=== PATIENT | female | born 1965 | race Caucasian/White ===

== ENCOUNTER 2020-09-10 05:13 | Observation (INO) ==
--- NOTE | 2020-08-19 15:36 | PAT Medication Instructions ---
Medication Instructions Date of Service August 19, 2020 Home Medications Medication Instructions Recorded meloxicam 15 mg tablet 15 mg PO DAILY PRN #30 tab 01/08/20 Wheeled Walker #1 ea 08/14/20 meloxicam 15 mg tablet 15 mg PO DAILY PRN escitalopram oxalate 10 mg tablet 10 mg PO QAM levothyroxine 88 mcg tablet 88 mcg PO QAM ergocalciferol (vitamin D2) [Vitamin D2] 1,250 mcg PO WK Continue as directed ergocalciferol (vitamin D2) [Vitamin D2] 1,250 mcg PO WK (just do not take morning of surgery) ASK your surgeon for instructions meloxicam 15 mg tablet 15 mg PO DAILY PRN Take morning of surgery With a small sip of water, OTHERWISE NOTHING TO EAT OR DRINK AFTER MIDNIGHT: escitalopram oxalate 10 mg tablet 10 mg PO QAM levothyroxine 88 mcg tablet 88 mcg PO QAM Other Notes If you have any questions please call us at [phone] or [phone] or [phone] or [phone]
--- NOTE | 2020-08-21 08:42 | Anesthesiology Consultation ---
Date of Service August 21, 2020 Assessment & Plan (1) Encounter for pre-operative examination: Per assessment on 08/21: Travel screen negative. No known COVID-19 positive contacts or current COVID-19 related symptoms. Surgeon arranging preop COVID testing (scheduled 09/04). Awaiting results. Chart Review Chart Review: Acceptable Risk for Surgery and Patient seen in Pre Admission Testing Teaching & Discussion Pre-Anesthesia Teaching/Discussion Notes: Instructed NPO after midnight before surgery,except medications with 15 cc of water. Medication instructions provided according to the PAT guidelines. History Surgery Operation Date: 09/10/20 12:45 Proposed Procedures p Right Unicompartmental Versus - Angel Carpio MD s Total Knee Arthroplasty - Angel Carpio MD Height/Weight Height: 5 ft 6 in Weight: 120.1 kg Allergies Allergy/AdvReac Type Severity Reaction Status Date / Time No Known Allergies Allergy Verified 08/19/20 10:15 Medications Home Medications Medication Instructions Recorded Confirmed Last Taken meloxicam 15 mg tablet 15 mg PO DAILY PRN #30 tab 01/08/20 08/19/20 Unknown escitalopram oxalate 10 mg tablet 10 mg PO QAM 04/16/20 08/19/20 Unknown levothyroxine 88 mcg tablet 88 mcg PO QAM 04/16/20 08/19/20 Unknown Wheeled Walker #1 ea 08/14/20 08/14/20 Unknown ergocalciferol (vitamin D2) 1,250 mcg PO WK 08/19/20 08/19/20 Unknown [Vitamin D2] Past Medical History Medical History Depression Hypothyroidism Morbid obesity Osteoarthritis Sleep apnea CPAP Exercise / Class Metabolic Activity II 4-5 Yardwork/Stairs/Walk up hill Past Family History Family History Mother Family history of diabetes mellitus Family hx of colon cancer Brother Family history of esophageal cancer Past Surgical History Surgical History History of bilateral tubal ligation History of colonoscopy History of esophagogastroduodenoscopy (EGD) History of tooth extraction Past Anesthesia History No Hx of Anesthesia Complications and No Family Hx of Anesthesia Complications History of PONV No Hx of PONV and Hx of Motion Sickness Social History Smoking Status: Never smoker Do You Dip or Chew Tobacco: No Hx Alcohol Use: No Hx Substance Use: No substance use type: does not use Review of Systems Patient denies chest pain, shortness of breath, dyspnea on exertion, fever, chills, cough, wheezing, palpitations. Physical Exam Vital Signs VITALS BP 134/84 P 59 TEMP 98.2 SP02 97%RA RESP 16 PHYSICAL Full neck and c-spine range of motion. Full TMJ range of motion. TMD 4 finger breaths Mallampati Score 2 Dentition: missing molars Lungs: clear throughout to auscultation Cardiac: regular rate and rhythm, no murmurs noted Spine: normal Carotid arteries: negative bruit Extremities: no edema Short neck Testing Laboratory Results 08/21/20 09:06 08/21/20 09:06 PT 10.3 Seconds (9.0-12.0) 08/21/20 09:06 INR 1.0 (0.9-1.1) 08/21/20 09:06 APTT 24.6 Seconds (21.0-31.0) 08/21/20 09:06 Blood Type A Positive 08/21/20 09:06 Antibody Screen NEGATIVE 08/21/20 09:06 Electrocardiogram Date: 08/21/20 SR with short NJ at 63bpm. Nondiagnostic inferior Q waves. Otherwise normal ECG. Patient reports good functional status without cardiopulmonary complaints/limitations. Report will be forwarded to PCP for continuity of care. Chest X-Ray Date: 08/21/20 Findings: + NAD
--- NOTE | 2020-08-21 10:25 | XRay Report ---
XR chest Pre-admission PA/Lat HISTORY: Preop. COMPARISON: None. FINDINGS: The lungs are clear. Cardiac silhouette is normal in size. No pleural effusions. No pneumot horax. IMPRESSION: No acute process. ACT 112: Negative or not required by law. Electronically signed by: Manav Mancuso M.D. 08/21/2020 10:24 AM
[2020-08-21 10:28] LABS: Basophils # (auto) 0.03 K/uL (0-0.2); Basophils % (auto) 0.5 %; Eosinophils # (auto) 0.61 K/uL (0-0.5); Eosinophils % (auto) 9.4 %; Hematocrit (blood only) 43.4 % (37-47); Hemoglobin 14.5 g/dL (12.0-16.0); Immature Granulocytes # (auto) 0.01 K/uL (0.00-0.02); Immature Granulocytes % (auto) 0.2 %; Lymphocytes # (auto) 2.27 K/uL (1.2-3.4); Mean Corpuscular Hemoglobin 30.9 pg (25-34); Mean Corpuscular Hgb Conc 33.4 g/dL (32-36); Mean Corpuscular Volume 92.3 fL (80-100); Mean Platelet Volume 12.1 fL (7.4-10.4); Monocytes # (auto) 0.83 K/uL (0.11-0.59); Monocytes % (auto) 12.8 %; Neutrophils # (auto) 2.74 K/uL (1.4-6.5); Neutrophils % (auto) 42.1 %; Platelet Count 202 K/uL (130-400); RDW Coefficient of Variation 12.8 % (11.5-14.5); RDW Standard Deviation 42.9 fL (36.4-46.3); White Blood Count 6.49 K/uL (4.8-10.8)
[2020-08-21 10:35] LABS: BUN Creatinine Ratio 19.4 (10-20); Calcium 9.2 mg/dl (8.5-10.1); Creatinine Clr Calc Pharmacy 80.3 ml/min; Est GFR (African American) 70.7; Potassium 4.8 mmol/L (3.5-5.1)
[2020-08-21 10:39] LABS: Partial Thromboplastin Ratio 0.9; Partial Thromboplastin Time 24.6 Seconds (21.0-31.0); Prothrombin Time 10.3 Seconds (9.0-12.0)
--- NOTE | 2020-08-21 11:19 | Electrocardiogram Report ---
Test Reason : Blood Pressure : / mmHG Vent. Rate : 063 BPM Atrial Rate : 063 BPM P-R Int : 110 ms QRS Dur : 092 ms QT Int : 442 ms P-R-T Axes : 014 073 014 degrees QTc Int : 452 ms Sinus rhythm with short MI Nondiagnostic inferior Q waves Otherwise normal ECG No previous ECGs available Confirmed by Heath Austin ([id number]) on 08/21/2020 11:19:00 AM Referred By: Angel Carpio Confirmed By:Heath Austin
[2020-09-10] MEDS ORDERED: METOCLOPRAMIDE HCL 10 MG TABLET PO SCH (06:00)
[2020-09-10] MEDS ORDERED: ACETAMINOPHEN 500 MG TAB PO SCH (06:00)
[2020-09-10] MEDS ORDERED: LR 60ML/HR IV SCH (06:00)
[2020-09-10] MEDS ORDERED: FAMOTIDINE 20 MG TAB PO SCH (06:00)
[2020-09-10] MEDS ORDERED: TRANEXAMIC ACID 1,000 MG **IV Intra-op IV SCH (06:00)
[2020-09-10] MEDS ORDERED: BUPIVACAINE LIPOSOME/PF 266 MG, BUPIVACAINE/EPINEPHRINE 50 ML, SODIUM CHLORIDE 0.9% 30 ... INFIL SCH (06:00)
[2020-09-10] MEDS ORDERED: LR 500ML BOLUS, THEN 15ML/HR IV SCH (06:00)
[2020-09-10] MEDS ORDERED: GABAPENTIN 300 MG CAP PO SCH (06:00)
[2020-09-10] MEDS ORDERED: BUPIVACAINE 0.25% 30 ML VIAL ONE ×2 (06:23→07:02)
[2020-09-10] MEDS ORDERED: BUPIVACAINE 0.5 % 5 MG/1 ML PF 10ML VIAL ONE (06:23)
[2020-09-10] MEDS ORDERED: PROPOFOL IV EMULSION 10 MG/ML 20 ML VIAL IV ONE ×2 (06:51→08:17)
[2020-09-10] MEDS ORDERED: ePHEDrine sulfate 50 MG/ML SYR ONE (06:51)
[2020-09-10] MEDS ORDERED: MIDAZOLAM HCL 1 MG/ML 2ML VIAL ONE (06:51)
[2020-09-10] MEDS ORDERED: LIDOCAINE HCL 2% 2 ML VIAL/AMP(20MG/ML) INFIL ONE (06:51)
[2020-09-10] MEDS ORDERED: fentaNYL citrate 100 MCG/2 ML VIAL ONE (06:51)
--- NOTE | 2020-09-10 06:53 | History & Physical Bridge Note ---
Date of Service September 10, 2020 History & Physical Bridge Note I have examined the patient, reviewed the History & Physical and in the interval since the performance of the History & Physical I have noted the following changes of clinical significance: no changes noted
[2020-09-10] MEDS ORDERED: ePHEDrine sulfate 50 MG/ML AMP IV PRN (06:55)
[2020-09-10] MEDS ORDERED: ONDANSETRON INJ 2 MG/ML 2 ML VIAL IV PRN ×2 (06:55→10:26)
[2020-09-10] MEDS ORDERED: fentaNYL citrate 100 MCG/2 ML VIAL IV PRN (06:55)
[2020-09-10] MEDS ORDERED: ATROPINE SULFATE 0.1 MG/ML 10ML SYR IV PRN (06:55)
[2020-09-10] MEDS ORDERED: SODIUM CHLORIDE 0.9% PF 50 ML VIAL ONE (07:01)
[2020-09-10] MEDS ORDERED: BACITRACIN INJ 50,000 UNIT VIAL ONE (07:01)
[2020-09-10] MEDS ORDERED: BUPIVACAINE LIPOSOME 1.3% 266 MG/20 ML VIAL ONE (07:01)
[2020-09-10] MEDS ORDERED: EPINEPHrine INJ 1 MG/ML AMP ONE (07:02)
--- NOTE | 2020-09-10 09:01 | Post Operative Brief Note ---
PG Immediate Post Op with CF Date of Surgery September 10, 2020 Pre & Post Diagnosis Operation Date: 09/10/20 07:15 Pre-Op Diagnosis: Right Knee Degenerative Joint Disease Post-Op Diagnosis: Right Knee Degenerative Joint Disease I identified the patient and participated in the time-out.: Yes Procedure Operation Date: 09/10/20 07:15 Actual Procedures p Right Unicompartmental Total Knee Arthroplasty, Cemented(Right) - Angel Carpio MD Surgeon Angel Carpio MD Stunner Animal CRISTOPHER Vega Estimated Blood Loss 25 Findings Consistent with Post-Op Diagnosis Fluids 1800 cc Specimens Specimen Description: Permanent Specimen A: Right knee bone and tissue Drains Edmond Catheter Anesthesia Type Spinal MAC Complications none Disposition Accompanied Patient To Recovery: No Disposition: Recovery Room
--- NOTE | 2020-09-10 09:46 | XRay Report ---
XR knee RT 1 or 2V routine CLINICAL HISTORY: Surgical Post Op COMPARISON: MRI study dated 05/27/2020 DISCUSSION: There are postsurgical changes of a medial joint compartment arthroplasty. There is gas p resent within the soft tissues consistent with recent surgery. There are overlying skin ze. IMPRESSION: Postsurgical changes of a medial joint compartment arthroplasty. ACT 112: Negative or not required by law. Electronically signed by: Mateusz Moreno M.D. 09/10/2020 9:44 AM
[2020-09-10] MEDS ORDERED: bisacodyL 10 MG SUPP PR PRN (10:26)
[2020-09-10] MEDS ORDERED: HYDROmorphone INJ 0.5 MG/0.5 ML SYR IV PRN (10:26)
[2020-09-10] MEDS ORDERED: NALOXONE HCL 0.4 MG/1 ML VIAL/CARP IV PRN (10:26)
[2020-09-10] MEDS ORDERED: diphenhydrAMINE Capsule 25 MG CAP PO PRN (10:26)
[2020-09-10] MEDS ORDERED: METOCLOPRAMIDE HCL INJ 5 MG/ML 2 ML VIAL IV PRN (10:26)
[2020-09-10] MEDS ORDERED: MAGNESIUM HYDROXIDE SUSP 30 ML UDC PO PRN (10:26)
[2020-09-10] MEDS ORDERED: INFLUENZA ADMINISTRATION CHARGE ONE (10:41)
[2020-09-10] MEDS ORDERED: INFLUENZA VIRUS QUAD VACCINE 0.5 ML SYR IM ONE (10:41)
[2020-09-10] MEDS: KETOROLAC 30 MG/ML VIAL IV SCH ×3 (11:24→23:52)
[2020-09-10] MEDS: traMADol HCL 50 MG TABLET PO PRN ×2 (11:25→21:10)
[2020-09-10] MEDS: SODIUM CHLORIDE 0.9% 1000ML 1,000 ML IV SCH ×2 (11:25→18:35)
[2020-09-10] MEDS: ACETAMINOPHEN 500 MG TAB PO SCH ×2 (13:22→21:14)
[2020-09-10] MEDS: ceFAZolin 2000MG 2,000 MG/15 ML SYR IV SCH ×2 (13:23→21:14)
--- NOTE | 2020-09-10 13:44 | Operative Report ---
Post Operative Report Pre & Post Diagnosis Operation Date: 09/10/20 07:15 Pre-Op Diagnosis: Right Knee Degenerative Joint Disease Post-Op Diagnosis: Right Knee Degenerative Joint Disease I identified the patient and participated in the time-out.: Yes Procedure Operation Date: 09/10/20 07:15 Actual Procedures p Right Unicompartmental Total Knee Arthroplasty, Cemented(Right) - Angel Carpio MD Surgeon Angel Carpio MD Hand I Thermal Cutter CRISTOPHER Vega Estimated Blood Loss 25 Findings Consistent with Post-Op Diagnosis Operative findings revealed advanced right knee medial compartment DJD. She had grade 4 changes the medial femoral condyle medial tibial plateau. The lateral compartment and patellofemoral compartment were fairly well spared with minimal degenerative change. Moderate-sized joint effusion. Fluids 1800 cc. Specimens Right knee sent for pathology. Drains None. Anesthesia Type Spinal MAC Complications none Disposition Disposition: Recovery Room Indications Patient is a 55-year-old female is had a several year history of increasing right knee pain discomfort which is localized the medial side of her knee. She been through extensive conservative treatment which became less successful over time. X-rays show progressive medial compartment arthritis. She had an MRI done which showed fairly large full-thickness cartilage lesion medial femoral condyle and of bone edema of the medial femoral condyle medial tibial plateau. The rest of her knee looked pretty well-preserved. She elected proceed with right partial knee replacement. Description of Procedure Operative implants consisted of: 1. Biomet Stanly medium femoral component. 2. Biomet Stanly right medial size D tibial tray. 3. 3 mm mobile-bearing insert. Patient was taken to the operating identified placed on the operating table supine position protectors were properly padded. IV antibiotics arrived by anesthesia team. A spinal anesthetic and abductor canal block had provided holding area. Edmond catheter was placed in sterile fashion. Right factor was then placed in the right lower extremity was then prepped and draped in usual sterile fashion. The right leg was elevated exsanguinated with use of an Esmarch and turns placed at 300 mmHg. An anterior approach to the right knee was then performed through a longitudinal incision beginning at the superior pole of the patella and extending just medial to the tibial tubercle. Sharp dissection was got through subcutaneous this down the extensor mechanism. A medial parapatellar arthrotomy incision was made. Some slight subperiosteal dissection was carried out medially taking great care to protect the MCL. I did resect the fat pad from beneath but the patella tendon. I then examined the knee. The lateral patellofemoral compartments were fairly well-preserved. She had full-thickness cartilage lesion the medial femoral condyle and a large knee joint effusion. The ACL was intact. We elected proceed with partial knee replacement. The osteophyte in the intercondylar notch area was resected. The femur was sized to a size medium. The medium spoon was placed. The external tibial alignment jig was then placed in the interface the tibia and attached to the spoon and secured to the proximal tibia. The proximal tibial cut was made. The tibia was sized to a size D. Attention drawn the femur. The distal femur was then with a sharp drill. The intramedullary guide was placed. The medium template was then placed and the holes were drilled for the medium femoral component. The posterior cutting guide was placed and the posterior cut was made. The 0 spigot was placed in the distal femur was milled. I then remove the medial meniscus. I then trialed the knee and the 4 feeler gauge fit appropriately and flexion and the one in extension. We then used the 3 spigot milled the distal femur. We then trialed again and the 4 fit both flexion extension. Was a little bit tight but felt to be appropriate. We elect to place these implants. All trial implants were removed. Cement drill was used to create holes in the distal femur for cement interdigitation. The femoral preparation guide was placed and the posterior osteophyte was removed along with the milling of the anterior femur for the femoral trial. The tibial tray was pinned in place and the toothbrush blade saw was used to create the defect for the keel. We then trialed the knee one more time in the forefoot insert fit appropriately. Was a bit tight but we I believe it was fit. We elect to place these implants. All trial implants were removed. The wound was irrigated cups ounce of pulsatile lavage solution. A single batch of [place] G cement was mixed. A right medial size D tibial tray was then placed and cemented into position followed by a medium femoral component. I then placed the 4 spoon and the knee was brought out into 30 degrees short full extension total cement hardened. Once the cement hardened we did a cement check. I then trialed the knee and the 4 insert just seemed a little bit too tight. There were [address] a 3 insert. The 3 insert was placed. Attention drawn toward closing. The wounds irrigated scope soft pulsatile lavage solution. I did inject locally with 100 cc of combination of 20 cc of Exparel, 30 cc normal saline, 50 cc of quarter percent Marcaine with epinephrine. Patient did receive 1 g tranexamic acid per the tourniquet was then let down for final tourniquet time 63 minutes. Hemostasis assured use electrocautery. The extensor mechanism closed with #1 Vicryl suture in a [id number] fashion. Extensor mechanism checked found to be intact the subcutaneous tissue then closed with 2 Dexon suture in a buried interrupted fashion skin was closed skin ze. Leg was then cleaned dried and a sterile dressing was Xeroform, 4 x 4's, sterile cast padding, Robert bandage were applied. Patient then transferred to the recovery room in stable condition. Patient tolerated the procedure well and there were no complications. Salas Vega, my physician insurance legal assistant, was present for the entire procedure. His assistance was essential and required for appropriate patient positioning, prepping and draping, surgical exposure, performing the technical details of the operation, placement the implants, closure of the wound, and placement of the sterile bandage. I attest to the content of the Intraoperative Record and any orders documented therein. Any exceptions are noted below.
--- NOTE | 2020-09-10 14:32 | Anesthesiology Progress Note ---
Date of Service September 10, 2020 Anesthesia Post Procedure Vital Signs Vital Signs: Temp Pulse Pulse Pulse Resp BP BP 09/10/20 12:56 36.7 C 59 L 16 159/99 H 09/10/20 12:23 60 16 133/81 09/10/20 11:21 55 L 16 129/83 09/10/20 10:52 55 L 16 130/81 09/10/20 10:26 36.4 C L 58 L 16 143/80 H 09/10/20 09:45 61 18 144/80 H 09/10/20 09:35 36.6 C 67 18 144/79 H 09/10/20 09:25 66 17 141/72 H 09/10/20 09:15 76 19 139/76 09/10/20 09:05 36.9 C 77 14 128/66 09/10/20 06:12 36.7 C 80 22 147/89 H 09/10/20 05:37 36.7 C 80 22 124/88 Pulse Ox 09/10/20 12:56 95 09/10/20 12:23 92 09/10/20 11:21 94 09/10/20 10:52 95 09/10/20 10:26 94 09/10/20 09:45 95 09/10/20 09:35 94 09/10/20 09:25 95 09/10/20 09:15 97 09/10/20 09:05 97 09/10/20 06:12 97 09/10/20 05:37 95 Pain Intensity Right Knee: Pain Intensity: 0 Transfer of Care Handoff Completed per policy Notes Mental Status: alert / awake / arousable and participated in evaluation Patient Amnestic to Procedure: Yes Nausea / Vomiting: adequately controlled Pain: adequately controlled Airway Patency, RR, SpO2: stable & adequate BP & HR: stable & adequate Hydration State: stable & adequate Neuraxial Anesthesia: was administered and sensory block is resolving Anesthetic Complications: no major complications apparent and Pt Satisfied with anesthetic care
[2020-09-10] MEDS: Scopolamine CHECK PATCH PLACEMENT SCH ×2 (15:35→23:52)
[2020-09-10] MEDS ORDERED: SENNA 8.6 MG TAB PO SCH (21:00)
[2020-09-10] MEDS: DOCUSATE SODIUM 100 MG CAP PO SCH (21:14)
[2020-09-10] MEDS: ASPIRIN 81 MG ECTAB PO SCH (21:14)
[2020-09-11] MEDS: SODIUM CHLORIDE 0.9% 1000ML 1,000 ML IV SCH (01:13)
[2020-09-11] MEDS: ACETAMINOPHEN 500 MG TAB PO SCH (05:59)
[2020-09-11] MEDS: KETOROLAC 30 MG/ML VIAL IV SCH ×2 (06:00→12:42)
[2020-09-11] MEDS ORDERED: LEVOTHYROXINE SODIUM 88 MCG TABLET PO SCH (06:30)
[2020-09-11 07:51] VITALS: BP 112/71; TEMP 98.1; O2SAT 96
[2020-09-11] MEDS: traMADol HCL 50 MG TABLET PO PRN (08:19)
[2020-09-11] MEDS: Scopolamine CHECK PATCH PLACEMENT SCH (08:19)
[2020-09-11] MEDS: ASPIRIN 81 MG ECTAB PO SCH (08:20)
[2020-09-11] MEDS: DOCUSATE SODIUM 100 MG CAP PO SCH (08:22)
--- NOTE | 2020-09-11 08:34 | Progress Notes ---
DATE: 09/11/2020 SUBJECTIVE: A 55-year-old white female postop day 1 from a right partial knee replacement. She is doing pretty well. Had a pretty good night. Pain seems to be controlled. No chest pain or shortness of breath. Not feeling dizzy or lightheaded. OBJECTIVE: VITAL SIGNS: Temperature 36.6. Vital signs stable. GENERAL: Shows a pleasant, middle-aged female. She is lying in bed, looks pretty comfortable. EXTREMITIES: Examination of the right leg reveals the leg to be well aligned. Dressing is clean, dry and intact. She can dorsiflex and plantarflex her foot appropriately. She can do a good straight leg raise. ASSESSMENT: A 55-year-old white female postoperative day 1 from a right partial knee replacement, doing well. Pain is controlled. She is neurologically intact. PLAN: 1. DVT prophylaxis including thigh-high TEDs, SCDs, and aspirin twice a day. 2. PT/OT. Weight bear as tolerated. Right total knee protocol. 3. Pain control, doing okay with current pain regimen. 4. Disposition: Plan to discharge to home with some home health likely later today if does okay in therapy and pain controlled.
[2020-09-11] MEDS ORDERED: ESCITALOPRAM OXALATE 10 MG TAB PO SCH (09:00)
[2020-09-11] MEDS ORDERED: MULTIVITAMIN TAB PO SCH (09:00)
[2020-09-11 12:26] VITALS: PULSE 55
--- NOTE | 2020-09-15 15:42 | Discharge Summary ---
Date of Service September 15, 2020 Admission HPI Per Admitting Provider Documented in the H & P Admission Exam (Per Admitting) Constitutional Documented in the H & P Discharge Data Consultations 09/10/20 10:26 Consult Case Management - Discharge Planning Routine Procedures Performed Operation Date: 09/10/20 07:15 Actual Procedures p Right Unicompartmental Total Knee Arthroplasty, Cemented(Right) - Angel Carpio MD Hospital Course (1) Status post right partial knee replacement: This patient is a 55 year old female admitted on 09/10/20 and underwent unicompartmental knee arthroplasty. She tolerated the procedure well and there were no complications. Transferred to the PACU post op and later to the orthopedic floor for further care. She was given ancef for antibiotic prophylaxis. She was also given KESHIA stockings, SCDs, and aspirin for DVT prophylaxis. Vital signs were monitored during her hospital stay and remained stable. Did not require any blood transfusions. There were no complications during her hospital stay. By post op day #1 the patient was tolerating a regular diet, pain was reasonably controlled with oral pain medicine, and she was participating in physical therapy. On post op day #1 the patient was discharged home and set up with home health care. She was given printed discharge instructions including prescriptions for extra strength tylenol, aspirin, and tramadol. Continue physical therapy, weight bearing as tolerated. Continue KESHIA stockings. Follow up approximately 2 weeks post op or sooner if there are problems or concerns. Coding Level of Care Code None Diagnoses Status post right partial knee replacement Z96.651
[2020-09-17] MEDS ORDERED: ERGOCALCIFEROL 50,000 UNITS 1250 MCG CAP PO SCH (09:00)
== END 2020-09-11 13:33 | disposition home health service (06) ==
LOC: ASU 05:13 → 3E 05:13
DX: Z79.890 Hormone replacement therapy; E66.01 Morbid (severe) obesity due to excess calories; Z79.899 Other long term (current) drug therapy; G47.30 Sleep apnea, unspecified; M17.11 Unilateral primary osteoarthritis, right knee; Z83.3 Family history of diabetes mellitus; Z80.0 Family history of malignant neoplasm of digestive organs; E03.9 Hypothyroidism, unspecified